=== PATIENT | male | born 1940 | race Caucasian/White ===

== ENCOUNTER → 2020-02-23 10:37 | Outpatient (CLI) | payer OTHER, SELFPAY ==
[2020-02-24 08:49] LABS: COVID19 Sendout Not Detected (Not Detect)
== END ==
PROVIDERS: Visit Provider Physician Assistant
DX: Z01.818 Encounter for other preprocedural examination (principal)
CPT/HCPCS: 87635

== ENCOUNTER 2020-02-26 12:45 | Day surgery (SDC) | payer OTHER, SELFPAY ==
--- NOTE | 2020-02-23 11:57 | PM.PREOP ---
Pre-operative Note COVID-19 COVID-19 status: Negative Interval Note History & Physical reviewed/Exam performed by Physician: Yes Changes to H&P: No H&P completed within 30 days and has changed as indicated here:: Patient states eye was itchy after last dilation in the office. Had no reaction to drops today.
--- NOTE | 2020-02-23 11:58 | PM.OP.1 ---
Operative Date/Time/Diagnoses Date of procedure: 02/26/20 Time of procedure: 14:15 Procedure & Clinicians Procedure: Preoperative diagnoses: 1. Left significant nuclear sclerotic cataract. 2. Astigmatism which is to be corrected with a toric intraocular lens implant. 3. Mild epiretinal membrane. 4. Hypertension. 5. Rosacea. Postoperative diagnoses: 1. Cataract removal with phacoemulsification with toric posterior chamber intraocular lens implant placed. Procedure: Phacoemulsification with posterior chamber toric intraocular lens implant. Surgeon: Raquel Ramirez MD Complications: None Specimen: None Implant: [id number] [place] 004 Blood loss: None Anesthesia: Retrobulbar with monitored standby Description of procedure: Patient presents with a complaint of decreased vision due to cataract which is affecting activities of daily living. The patient wants surgery to improve vision and astigmatism. He understands the extra risk of proceeding with surgery due during the COVID-19 epidemic and wishes to proceed. He has tested negative. He stated he had itchy eyes after diltion recently in the office but had no reaction or swelling when dilated for surgery today. The patient was taken to the operating room and proparacaine drops placed. Indelible ink hernandez were placed at the 90 and 180 degree meridian. The patient was placed on the operating room table and given IV sedation. A retrobulbar block insert consisting of 6 cc of 2% xylocaine without epinephrine mixed half and half with 0.5% Marcaine with 1 cc of hyaluronidase added is placed between the medial and lateral 1/3 of the inferior orbital rim. The eye is manually massaged for 30 sec, prepped using Betadine solution, and draped in the usual sterile fashion. Temporal approach was made, a 1 mm side-port incision was made 90? from the proposed corneal wound. Phenylephrine 1.5% mixed with 1% xylocaine 0.2 cc was placed into the anterior chamber. Viscoat followed by Robinson was then placed. A 2.6 mm clear incision with a 2.6 mm blade was placed at the 170 degree meridian. A 360 degree capsulorrhexis style capsulotomy was then performed with a cystitome needle on a [place]. Hydrodelineation and hydrodissection were performed. The phacoemulsification unit is introduced, and sculpting used to groove the central lens. It is then removed in chopping mode. Epi nucleus is removed with epinuclear mode and irrigation aspiration was used to remove the peripheral cortex. The posterior capsule is polished. The intraocular lens is selected, inspected, power confirmed, and placed in the posterior chamber at the desired meridian. The pupil was not constricted. The wound was stromally hydrated and tested for leaks, there was none and it was left sutureless. Vigamox 0.1 cc was placed into the anterior chamber. Kenalog 0.2 cc was placed in the superior subconjunctival space. A drop of antibiotic and was placed and the eye was patched and shielded. The patient was stable and returned to the recovery room in excellent condition. Dictated by: Raquel Ramirez MD Copy to: [facility] Same procedure as scheduled: Yes
[2020-02-26] MEDS: PROPARACAINE 0.5% OPHTH SOL 2 DROPS EYE-OP (13:26)
[2020-02-26] MEDS: CATARACT EYE COMPOUND (10 DROPS/SYRINGE) 3 DROPS EYE-OP (13:28)
[2020-02-26 13:36] VITALS: BP 161/74; PULSE 53; RESP 16; TEMP 37; O2SAT 97; BMI 24.7
[2020-02-26] MEDS: HYALURONATE SODIUM 10 MG/ML SYRINGE INJ (14:32)
[2020-02-26] MEDS: CHONDROIDTIN/SOD HYALURONATE 1.05 ML SYRINGE INTRAOCULA (14:32)
[2020-02-26] MEDS: BALANCED SALT IRRIG SOLN NO.2 500 ML, EPINEPHrine 1 MG IRR (14:33)
[2020-02-26] MEDS: ERYTHROMYCIN OPHTH 1 GM OINT 1 APPLIC EYE-LEFT (14:34)
[2020-02-26] MEDS: TRIAMCINOLONE 50 MG/5 ML VIAL INJ (14:34)
[2020-02-26] MEDS: MOXIFLOXACIN INJ 5 MG/ML VIAL EYE-OP (14:35)
[2020-02-26] MEDS: PHENYLEPHRINE/LIDOCAINE VIAL (OR) 0.2 ML EYE-OP (14:35)
[2020-02-26] MEDS: LIDOCAINE 2% 4 ML, BUPIVACAINE 0.5% (PF) 4 ML, HYALURONIDASE 150 UNIT INJ (14:36)
[2020-02-26 15:00] VITALS: BP 161/83; PULSE 48; RESP 14; TEMP 36; O2SAT 96
== END 2020-02-26 15:19 | disposition home or self-care (01) ==
PROVIDERS: PCP Internal Medicine; Referring Provider Ophthalmology; Visit Provider Ophthalmology
PROC: (CPT 66984; principal; 2020-02-26 14:15)
DX: H25.12 Age-related nuclear cataract, left eye (principal); H52.202 Unspecified astigmatism, left eye; I10 Essential (primary) hypertension; H35.372 Puckering of macula, left eye; H35.363 Drusen (degenerative) of macula, bilateral
CPT/HCPCS: 66984; J0171; J2250; J3301; J3470; V2787